=== PATIENT | male | born 1950 | race Caucasian/White ===

== ENCOUNTER → 2019-07-10 | Outpatient (CLI) | payer MEDICARE ==
[2019-07-10 14:42] LABS: DIRECT BILIRUBIN 0.2 mg/dL (<0.1-0.3); TOTAL BILIRUBIN 0.8 mg/dL (<0.1-1.0); TOTAL PROTEIN 6.9 g/dL (6.4-8.2)
== END ==
LOC: M.ULTRA 14:03
PROVIDERS: Internal Medicine
DX: K81.1 Chronic cholecystitis (principal); N32.89 Other specified disorders of bladder; R17 Unspecified jaundice